=== PATIENT | female | born 1990 | race African-American/Black ===

== ENCOUNTER 2018-07-18 12:43 | Emergency (ER) | payer BC, MEDICAID ==
[2018-07-18 13:37] LABS: #Basophils 0.1 thou/uL (0.0-0.2); #Lymphocytes 2.3 thou/uL (1.20-3.40); #Monocytes 0.4 thou/uL (0.11-0.59); #Neutrophils 10.3 thou/uL (1.40-6.50); %Basophils 0.7 % (0.0-1.0); %Eosinophils 0.3 % (0.0-10.0); %Lymphocytes 17.6 % (21.0-51.0); %Monocytes 3.3 % (0.0-10.0); %Neutrophils 78.2 % (42.0-75.0); Hemoglobin 14.9 g/dL (12.0-16.0); Mean Corpuscular Hemoglobin 29.8 pg (27.0-31.0); Mean Platelet Volume 8.4 fL (7.4-10.4); Platelet Count 209 thou/uL (130-400); RBC Distribution Width 13.7 % (11.5-14.5); Red Blood Cell (RBC) Count 4.99 mill/uL (4.20-5.40); White Blood Cell (WBC) Count 13.1 thou/uL (4.8-10.8)
[2018-07-18 13:47] LABS: BHCG - Serum Negative (NEGATIVE); Pregs Control Background? CLEAR/WHITE (CLR/WHITE); Pregs Control Bar Appear? YES (CONTROL BAR)
[2018-07-18] MEDS ORDERED: Ondansetron PF 4 MG/2 ML Vial ONE (13:53)
[2018-07-18] MEDS ORDERED: Morphine 4 MG/ML VIAL ONE (13:56)
[2018-07-18 14:03] LABS: ALT (SGPT) 15 U/L (8-55); AST (SGOT) 16 U/L (5-34); Albumin 4.4 g/dL (3.5-5.0); Alkaline Phosphatase 100 U/L (40-150); Anion Gap 17 mmol/L (10-20); BUN (Urea Nitrogen) 7 mg/dL (7.0-18.7); Bilirubin, Total 0.2 mg/dL (0.2-1.2); Calc. Creatinine Clearance 0 mL/min (70-130); Calcium 9.4 mg/dL (7.8-10.44); Carbon Dioxide 20 mmol/L (22-29); Chloride 104 mmol/L (98-107); Estimated GFR-MDRD Greater than 90; Globulin 3.8 g/dL (2.4-3.5); Glucose 155 mg/dL (70-105); Lipase 12 U/L (8-78); Potassium 3.5 mmol/L (3.5-5.1); Protein, Total 8.2 g/dL (6.0-8.3); Sodium 137 mmol/L (136-145)
[2018-07-18 14:06] LABS: Bilirubin Negative (Negative); Blood, Urine Large (Negative); Clarity CLOUDY (Clear); Glucose, Urine (Dipstick) 250 mg/dL (Negative); Leukocyte Trace (Negative); Nitrite Negative (Negative); Protein, Urine (Dipstick) 30 mg/dL (Neg-Trace); Specific Gravity, Urine 1.021 (1.002-1.036); Urobilinogen 0.2 mg/dL (0.2-1.0)
[2018-07-18 14:09] LABS: Bacteria/HPF Rare-Few HPF (None Seen); Pathc Cast-AUWi Flag 2.32 (0-2.49); RBC/HPF GREATER THAN 50-TNTC HPF (0-3)
[2018-07-18 14:21] LABS: Hyaline Casts/LPF 0-3 HYALINE CAST LPF (0-3 Hyaline); Renal Epithelial 0-3 HPF (0-3)
[2018-07-18] MEDS ORDERED: Ketorolac Tromethamine 30 MG/ML VIAL ONE (16:28)
[2018-07-18] MEDS ORDERED: cefTRIAXone\\ROCEPHIN 1 GM VIAL ONE ×3 (16:29→16:30)
[2018-07-18] MEDS ORDERED: HYDROcodone/Acetaminophen 5/325 mg Tablet ONE (16:30)
--- NOTE | 2018-07-18 16:32 | CT ---
CT ABDOMEN AND PELVIS WITH IV CONTRAST: 07/18/18 HISTORY: Abdominal pain with nausea and vomiting. COMPARISON: Noncontrast CT abdomen and pelvis on 02/04/17 as [address] as postcontrast CT abdomen and pelvis on 09/26/09. FINDINGS: The lung base are clear. There is mild prominence of the extrarenal pelvis on the left. However, no hydronephrosis is present. The left ureter does appear mildly prominent with slight periureteral stranding seen proximally. The re is a calcification seen in the distal left ureter, this calcific density was not seen on prior non contrasted CT scan on 02/04/17 and is closely adjacent to phlebolith which was noted on the prior exam . Findings are worrisome for distal left ureteral calculus measuring approximately 7 mm. Previously s een punctate nonobstructing bilateral renal calculi are not well visualized on this postcontrast CT exam. The kidneys otherwise have a normal CT appearance. There is a 1 cm focus of enhancement seen on the lateral aspect of the dome of the liver which could potentially present an transient hepatic arterial difference versus small vascular malformation. This exam was obtained in arterial phase of imaging. Liver is otherwise normal in appearance. The spleen, pancreas, bilateral adrenal glands, abdominal aorta, and urinary bladder demonstrate a no rmal CT appearance. Low density structure is seen within the left adnexal region which was also seen on the study in 2017 . This area measures approximately 2.2 cm and is smaller in size when compared to the prior study but may represent a left ovarian cyst. The uterus and right adnexa are difficult to differentiate from o ne another due to close proximity of the right adnexal structures to the uterus. The appendix is visualized and normal in caliber and filled with gas. Trace amount of free fluid is s een in the pelvis. No other interval change. IMPRESSION: 1. Distal left ureteral calculus measuring 7 mm. There is mild prominence of the left ureter wit h suggestion of minimal periureteral stranding proximally, but there is no overt hydronephrosis on th e left. 2. Previously noted punctate nonobstructing bilateral renal calculi are not visualized on this e xam. 3. Small 2 mm focus of enhancement within the right lateral aspect dome of the liver without def ined margins. This may represent a transient hepatic arterial difference versus a small vascular malf ormation versus flash filling hemangioma. 4. Small hiatal hernia. 5. Trace amount of free fluid in the pelvis. 6. Probable left ovarian cyst. POS: [facility]
== END 2018-07-18 17:42 | disposition home or self-care (01) ==
LOC: ERS 12:43
DX: N20.2 Calculus of kidney with calculus of ureter (principal); R11.2 Nausea with vomiting, unspecified
CPT/HCPCS: 36415; 74177; 80053; 81003; 81015; 83605; 83690; 84703; 85025; 93005; 96361; 96374; 96375; J0696; J1885; J2270; J2405

== ENCOUNTER 2018-07-20 12:07 | Emergency (ER) | payer BC, MEDICAID ==
[2018-07-20] MEDS ORDERED: Ondansetron PF 4 MG/2 ML Vial ONE (12:33)
[2018-07-20] MEDS ORDERED: Morphine 4 MG/ML VIAL ONE (12:33)
[2018-07-20] MEDS ORDERED: Ketorolac Tromethamine 30 MG/ML VIAL ONE (13:00)
[2018-07-20 13:03] LABS: Bilirubin Negative (Negative); Blood, Urine Negative (Negative); Clarity CLOUDY (Clear); Glucose, Urine (Dipstick) Negative (Negative); Leukocyte Moderate (Negative); Nitrite Negative (Negative); Protein, Urine (Dipstick) 30 mg/dL (Neg-Trace); Specific Gravity, Urine 1.023 (1.002-1.036); Urobilinogen 0.2 mg/dL (0.2-1.0)
[2018-07-20 13:05] LABS: RBC/HPF 0-3 HPF (0-3); Squamous Epithelial 21-50 HPF (0-3); WBC/HPF 21-50 HPF (0-3)
[2018-07-20 13:06] LABS: Pathc Cast-AUWi Flag 3.48 (0-2.49)
[2018-07-20 13:08] LABS: #Basophils 0.1 thou/uL (0.0-0.2); #Monocytes 0.4 thou/uL (0.11-0.59); #Neutrophils 6.2 thou/uL (1.40-6.50); %Basophils 1.1 % (0.0-1.0); %Eosinophils 0.1 % (0.0-10.0); %Lymphocytes 23.2 % (21.0-51.0); %Monocytes 4.8 % (0.0-10.0); %Neutrophils 70.9 % (42.0-75.0); Hemoglobin 15.5 g/dL (12.0-16.0); Mean Corpuscular HGB CONC 32.2 g/dL (32.0-36.0); Mean Corpuscular Hemoglobin 29.3 pg (27.0-31.0); Mean Platelet Volume 8.3 fL (7.4-10.4); Platelet Count 200 thou/uL (130-400); RBC Distribution Width 13.7 % (11.5-14.5); Red Blood Cell (RBC) Count 5.31 mill/uL (4.20-5.40); White Blood Cell (WBC) Count 8.8 thou/uL (4.8-10.8)
[2018-07-20 13:16] LABS: ALT (SGPT) 15 U/L (8-55); AST (SGOT) 13 U/L (5-34); Albumin 4.5 g/dL (3.5-5.0); Alkaline Phosphatase 95 U/L (40-150); Anion Gap 17 mmol/L (10-20); BUN (Urea Nitrogen) 11 mg/dL (7.0-18.7); Bilirubin, Total 0.4 mg/dL (0.2-1.2); Calc. Creatinine Clearance 0 mL/min (70-130); Calcium 9.4 mg/dL (7.8-10.44); Carbon Dioxide 23 mmol/L (22-29); Chloride 99 mmol/L (98-107); Estimated GFR-MDRD Greater than 90; Globulin 4.1 g/dL (2.4-3.5); Glucose 98 mg/dL (70-105); Lipase 45 U/L (8-78); Protein, Total 8.6 g/dL (6.0-8.3); Sodium 136 mmol/L (136-145)
[2018-07-20 13:16] LABS: Hyaline Casts/LPF NONE SEEN LPF (0-3 Hyaline); Other Casts/LPF None Seen LPF (0-3 Hyaline)
[2018-07-20 13:17] LABS: Bacteria/HPF 1+ HPF (None Seen); Yeast-All Forms Rare HPF (None Seen)
[2018-07-20] MEDS ORDERED: Potassium Chloride 20 MEQ TAB ONE (13:46)
--- NOTE | 2018-07-20 14:39 | RAD ---
KUB: DATE: 07/20/2018. PROVIDED CLINICAL HISTORY: Abdominal pain. FINDINGS: Comparison is made with the CT examination performed 07/18/2018. Abdominal bowel gas pattern is nons pecific. The previously described left UVJ region calculus is not definitely seen radiographically, which could reflect interval passage. The osseous structures demonstrate no acute findings. IMPRESSION: Nonvisualization of previously described left ureteral calculus. POS: [facility]
== END 2018-07-20 14:30 | disposition home or self-care (01) ==
LOC: ERS 12:07
DX: N20.1 Calculus of ureter (principal); Z87.891 Personal history of nicotine dependence; Z79.899 Other long term (current) drug therapy
CPT/HCPCS: 36415; 74018; 80053; 81003; 81015; 83690; 85025; 87086; 96374; 96375; J1885; J2270; J2405

== ENCOUNTER 2025-03-19 06:29 | Emergency (ER) | payer OTHER, SELFPAY ==
[2025-03-19] MEDS ORDERED: PROPOFOL 20 ML ONE (07:26)
== END 2025-03-19 08:53 | disposition home or self-care (01) ==
LOC: ERS 06:29
DX: S43.015A Anterior dislocation of left humerus, initial encounter (principal); Z87.891 Personal history of nicotine dependence; X58.XXXA Exposure to other specified factors, initial encounter
CPT/HCPCS: 23650; 99152; J2704